=== PATIENT | male | born 1955 | race Caucasian/White ===

== ENCOUNTER → 2025-03-29 | Outpatient (CLI) | payer MEDICARE, SELFPAY | END | disposition home or self-care (01) | LOC: PSN 09:16 | PROVIDERS: PCP Family Medicine; Referring Provider Internal Medicine Critical Care Medicine; Visit Provider Internal Medicine Critical Care Medicine | DX: R06.02 Shortness of breath (principal); F17.210 Nicotine dependence, cigarettes, uncomplicated | CPT/HCPCS: 94060; 94726; 94729 ==

== ENCOUNTER → 2025-04-05 | Outpatient (CLI) | payer MEDICARE, SELFPAY ==
--- NOTE | 2025-04-05 12:18 | CT_ITS ---
PROCEDURE: LOW DOSE CT LUNG SCREENING 04/05/2025 REASON FOR EXAM: TOBACCO DEPENDENCY 20+ year history of cigarette exposure. TECHNIQUE: Procedure Code: CTLUNGSCREEN Modality: CT Procedure: LOW DOSE CT LUNG SCREENING Coronal and Sagittal reconstruction series were provided. One or more dose reduction techniques were used (e.g., Automated exposure control, adjustment of the mA and/or kV according to patient size, use of iterative reconstruction technique). REFERENCE LINK: [facility] Lung-RADS RADIATION DOSE SUMMARY: CTDlvol: 12 mGy DLP: 134 mGycm COMPARISON: None. FINDINGS: PULMONARY NODULES: (Only nodules >3mm are reported) Nodules described below are on series 2 unless otherwise specified. Thyroid gland: Negative. Lungs: Mild emphysematous changes. No pulmonary nodules or masses. Mild bronchiectasis. Pleura: Negative for pleural effusion or pneumothorax. Airways: Mild cylindrical bronchiectasis. Imaged bronchi and trachea otherwisenegative. Mediastinum: Negative for mediastinal mass. Lymph nodes: Negative for axillary, mediastinal or hilar adenopathy. Heart and Vasculature: Heart normal size. Negative for vascular calcifications of the thoracic aorta. Coronary Artery Calcifications: Mild vascular calcifications of the coronary arteries Upper Abdomen: Negative. Hardware: Transcatheter aortic valve replacement. Cardiac pacing device.. Bones: Age-appropriate appearance of the thoracic spine. CT/Low Dose CT Lung Screening IMPRESSION: Mild emphysema. No concerning pulmonary nodules or masses. Lung-RADS Category: 1 NEGATIVE. RECOMMEND 12-MONTH SCREENING LDCT. Reading Location: [id number]
[2025-04-05 13:18] VITALS: PULSE 61; PULSE 64; PULSE 81; PULSE 83; PULSE 84; PULSE 85; PULSE 87; PULSE 88; O2SAT 88; O2SAT 91; O2SAT 92; O2SAT 93; O2SAT 94; O2SAT 95; O2SAT 98
--- NOTE | 2025-04-05 13:20 | CPS ---
Patient does not have O2 at home. Started testing on room air, at the 3rd minute SpO2 87-88%. Patient walked a fast pace without breaks, about 600 ft. Placed patient on 2 lpm O2, SpO2 96%. Completed the rest of testing on 2 lpm. Patient continued a quick pace. Patient was audibly wheezing during most of the test.
--- NOTE | 2025-04-06 10:15 | PCM.PSN.6M ---
PSN 6 Minute Walk Test 6 Minute Walk Test 6 Minute Walk Test: 6 Minute Walk Test PSN:6-Minute Walk Test Start: 04/05/25 13:18 Freq: Status: Active Protocol: [id number] Document 04/05/25 13:18 ERIS (Rec: 04/05/25 13:23 ERIS [id number]) 6 Minute Walk Test Date Performed 04/05/25 Time Performed 12:35 Height 5 ft 6 in Weight: 280 lb Weight in Pounds 280.[address]: Daniel Novoa Assistive device None used: Pre-test Oxygen Delivery Room Air Method Pulse Ox (%) 94 Pulse Rate (60-100 61 beats/min) Dyspnea Osman Scale ( 0 0-10) Exertion Osman Scale 6 (6-20) 1st minute Oxygen Delivery Room Air Method Pulse Ox (%) 92 Pulse Rate (60-100 81 beats/min) 2nd minute Oxygen Delivery Room Air Method Pulse Ox (%) 91 Pulse Rate (60-100 84 beats/min) 3rd minute Oxygen Delivery Room Air Method Pulse Ox (%) 88 Pulse Rate (60-100 88 beats/min) 4th minute Oxygen Flow Rate (L/ 2 min) (L/min) Oxygen Delivery Nasal Cannula Method Pulse Ox (%) 95 Pulse Rate (60-100 83 beats/min) 5th minute Oxygen Flow Rate (L/ 2 min) (L/min) Oxygen Delivery Nasal Cannula Method Pulse Ox (%) 95 Pulse Rate (60-100 85 beats/min) 6th minute Oxygen Flow Rate (L/ 2 min) (L/min) Oxygen Delivery Nasal Cannula Method Pulse Ox (%) 93 Pulse Rate (60-100 87 beats/min) Dyspnea Osman Scale ( 5 0-10) Exertion Osman Scale 13 (6-20) Post-test Oxygen Flow Rate (L/ 2 min) (L/min) Oxygen Delivery Nasal Cannula Method Pulse Ox (%) 98 Pulse Rate (60-100 64 beats/min) Full Laps Walked 18 Partial Lap, Number 15 of Tiles Walked Total Distance 1077 Walked (ft) 04/05/25 13:20 Cardiopulmonary Services by Sabrina Mistry Patient does not have O2 at home. Started testing on room air, at the 3rd minute SpO2 87-88%. Patient walked a fast pace without breaks, about 600 ft. Placed patient on 2 lpm O2, SpO2 96%. Completed the rest of testing on 2 lpm. Patient continued a quick pace. Patient was audibly wheezing during most of the test. Initialized on 04/05/25 13:20 - END OF NOTE Interpretation Interpretation: The patient ambulated 1077 feet over the course of 6 minutes beginning on room air without assistive devices. Pretesting oxygen saturation was noted to be 94% on room air. With ambulation, the deanne oxygen saturation was 88%, requiring the initiation of 2 L/min of supplemental oxygen. Recommendations Recommendations: 2 L/min of supplemental oxygen should be utilized with exertion.
== END | disposition home or self-care (01) ==
PROVIDERS: PCP Family Medicine; Referring Provider Internal Medicine Critical Care Medicine; Visit Provider Internal Medicine Critical Care Medicine
DX: R06.02 Shortness of breath (principal); F17.210 Nicotine dependence, cigarettes, uncomplicated
CPT/HCPCS: 71271; 94618

== ENCOUNTER → 2025-05-08 | Outpatient (CLI) | payer MEDICARE, SELFPAY | END | disposition home or self-care (01) | LOC: SL 10:47 | PROVIDERS: PCP Family Medicine; Referring Provider Nurse Practitioner Family; Visit Provider Nurse Practitioner Family | DX: R06.02 Shortness of breath (principal) | CPT/HCPCS: 94762 ==